=== PATIENT | female | born 1940 | race Asian ===

== ENCOUNTER 2022-05-14 15:30 | Inpatient (IN) ==
[2022-05-14] MEDS ORDERED: GLUCAGON 1 MG VIAL IM PRN (15:46)
[2022-05-14] MEDS ORDERED: DEXTROSE 50% 25 GM/50 ML VIAL IV PRN (15:46)
[2022-05-14] MEDS ORDERED: ONDANSETRON 4 MG/2 ML VIAL IV PRN (15:46)
[2022-05-14] MEDS ORDERED: ACETAMINOPHEN 325 MG TABLET PO PRN (15:46)
[2022-05-14 18:38] LABS: Basophils % 0.1 % (0.0-0.8); Eosinophils # 0.1 10*3/uL (0.0-0.87); Eosinophils % 0.7 % (0.00-10.9); Hematocrit 28.6 VOL% (35.7-47.0); Hemoglobin 8.7 GM/DL (12.0-16.0); Immature Granulocytes % 0.5 %; Immature Granulocytes Absolute 0.04 #; Lymphocytes # 1.1 10*3/uL (1.4-4.0); Lymphocytes % 12.5 % (21.3-54.2); Mean Corpuscular HGB Conc 30.4 GM/DL (32-36); Mean Corpuscular Volume 78.6 FL (87-102); Mean Platelet Volume 11.7 FL (9.6-12.0); Monocytes # 0.4 10*3/uL (0.11-0.8); Monocytes % 4.6 % (1.7-12.7); Neutrophils % 81.6 % (38.7-73.9); Platelet Count 242 T/CUMM (130-400); Red Blood Count 3.64 MC/CUMM (3.8-5.5); Red Cell Distribution Width 19.3 % (9.3-17.3); White Blood Count 8.71 T/CUMM (4-12)
[2022-05-14 19:02] LABS: Alanine Aminotransferase 21 U/L (13-56); Albumin 2.9 G/DL (3.4-5.0); Alkaline Phosphatase 58 U/L (45-117); Aspartate Amino Transferase 20 U/L (0-37); Bilirubin,Total < 0.39 MG/DL (0.20-1.00); Blood Urea Nitrogen 71 MG/DL (7-18); Calcium 9.5 MG/DL (8.5-10.1); Carbon Dioxide 21 MMOL/L (21-32); Chloride 104 MMOL/L (98-107); Glucose 223 MG/DL (74-106); Osmolality,Calculated 291.5 MOS/KG (273-304); Potassium 5.5 MMOL/L (3.5-5.1); Sodium 132 MMOL/L (136-145); Total Protein 7.4 G/DL (6.4-8.2)
[2022-05-14] MEDS: INSULIN LISPRO 100 UNIT/ML SUBCUT SCH (19:03)
[2022-05-14] MEDS ORDERED: cloNIDine 0.1 MG TABLET PO PRN (20:11)
[2022-05-14] MEDS ORDERED: ONDANSETRON ODT 4 MG TABLET PO PRN (20:11)
[2022-05-14] MEDS ORDERED: amLODIPine 5 MG TABLET PO ONE (20:14)
[2022-05-14 20:17] LABS: % Iron Saturation 5.8 % (18-50)
[2022-05-14] MEDS: HYDROmorphone 1 MG/1 ML SYRINGE IV PRN ×2 (20:30→23:31)
[2022-05-14] MEDS: SODIUM CHLORIDE 0.9% 1,000 ML IV SCH (20:30)
[2022-05-14] MEDS: DOCUSATE SODIUM 100 MG CAPSULE PO SCH (20:30)
[2022-05-14] MEDS: SERTRALINE 50 MG TABLET PO SCH (20:30)
[2022-05-14 22:49] LABS: Hyaline Casts,Urine 1 /LPF (0-3); Mucus,Urine Occasional /LPF (Occasional); RBC,Urine 2 /HPF (0-4); Squamous Epithelial Cell,Urine Occasional /HPF (0-10); Urine Appearance Clear (Clear); Urine Color Yellow (Yellow)
[2022-05-14 22:50] LABS: Bilirubin,Urine Negative (Negative); Blood, Urine Trace mg/dL (Negative); Glucose,Urine (UA) 100 mg/dL (Negative); Ketones,Urine Negative (Negative); Nitrite,Urine Negative (Negative); Protein,Urine >=300 mg/dL (Negative); Urine Specific Gravity 1.015 (1.001-1.035); Urine Urobilinogen 0.2 eU/dL (<2.0); Urine pH 5.5 (4.5-8.0)
[2022-05-15 01:14] LABS: Mucus,Urine Occasional /LPF (Occasional); RBC,Urine <1 /HPF (0-4)
[2022-05-15 01:15] LABS: Bilirubin,Urine Negative (Negative); Glucose,Urine (UA) 100 mg/dL (Negative); Ketones,Urine Negative (Negative); Nitrite,Urine Negative (Negative); Protein,Urine >=300 mg/dL (Negative); Urine Appearance Clear (Clear); Urine Color Yellow (Yellow); Urine Specific Gravity 1.015 (1.001-1.035)
[2022-05-15 01:16] LABS: Blood, Urine Negative (Negative); Urine Urobilinogen 0.2 eU/dL (<2.0)
[2022-05-15 05:26] LABS: Calcium 8.8 MG/DL (8.5-10.1); Osmolality,Calculated 289.4 MOS/KG (273-304); Potassium 5.8 MMOL/L (3.5-5.1)
[2022-05-15] MEDS: LEVOTHYROXINE 25 MCG TABLET PO SCH (05:32)
[2022-05-15] MEDS: HYDROmorphone 1 MG/1 ML SYRINGE IV PRN ×3 (05:33→21:20)
[2022-05-15 06:43] LABS: Basophils % 0.1 % (0.0-0.8); Hematocrit 22.5 VOL% (35.7-47.0); Hemoglobin 6.8 GM/DL (12.0-16.0); Immature Granulocytes % 0.4 %; Immature Granulocytes Absolute 0.04 #; Lymphocytes # 0.8 10*3/uL (1.4-4.0); Lymphocytes % 8.3 % (21.3-54.2); Mean Corpuscular HGB Conc 30.2 GM/DL (32-36); Mean Corpuscular Volume 79.2 FL (87-102); Mean Platelet Volume 11.4 FL (9.6-12.0); Monocytes # 0.4 10*3/uL (0.11-0.8); Monocytes % 4.2 % (1.7-12.7); Platelet Count 313 T/CUMM (130-400); Red Blood Count 2.84 MC/CUMM (3.8-5.5); White Blood Count 9.19 T/CUMM (4-12)
[2022-05-15] MEDS ORDERED: SODIUM CHLORIDE 0.9% 1,000 ML IV PRN (07:56)
[2022-05-15] MEDS: PANTOPRAZOLE 40 MG TABLET PO SCH (08:39)
[2022-05-15] MEDS: amLODIPine 5 MG TABLET PO SCH (08:39)
[2022-05-15] MEDS: FOLIC ACID 1 MG TABLET PO SCH (08:39)
[2022-05-15] MEDS: DOCUSATE SODIUM 100 MG CAPSULE PO SCH ×2 (08:39→20:13)
[2022-05-15] MEDS: FLUCONAZOLE 100 MG TABLET PO SCH (08:39)
[2022-05-15] MEDS: INSULIN LISPRO 100 UNIT/ML SUBCUT SCH ×2 (08:40→17:25)
[2022-05-15] MEDS ORDERED: FUROSEMIDE 20 MG/2 ML VIAL IV PRN (09:00)
[2022-05-15] MEDS: SODIUM CHLORIDE 0.9% 1,000 ML IV SCH (18:02)
[2022-05-15 19:00] LABS: Basophils % 0.2 % (0.0-0.8); Eosinophils # 0.1 10*3/uL (0.0-0.87); Eosinophils % 0.7 % (0.00-10.9); Hematocrit 31.6 VOL% (35.7-47.0); Hemoglobin 9.7 GM/DL (12.0-16.0); Immature Granulocytes % 0.5 %; Immature Granulocytes Absolute 0.04 #; Lymphocytes # 1.2 10*3/uL (1.4-4.0); Lymphocytes % 13.8 % (21.3-54.2); Mean Corpuscular HGB Conc 30.7 GM/DL (32-36); Mean Platelet Volume 11.2 FL (9.6-12.0); Monocytes # 0.5 10*3/uL (0.11-0.8); Monocytes % 5.9 % (1.7-12.7); Neutrophils % 78.9 % (38.7-73.9); Platelet Count 316 T/CUMM (130-400); Red Cell Distribution Width 18.4 % (9.3-17.3); White Blood Count 8.61 T/CUMM (4-12)
[2022-05-15 19:07] LABS: Calcium 9.1 MG/DL (8.5-10.1); Osmolality,Calculated 285.7 MOS/KG (273-304); Potassium 5.3 MMOL/L (3.5-5.1)
[2022-05-15] MEDS: SERTRALINE 50 MG TABLET PO SCH (20:13)
[2022-05-15] MEDS: hydrALAZINE 20 MG/1 ML VIAL IV PRN (20:21)
[2022-05-15] MEDS ORDERED: FUROSEMIDE 20 MG/2 ML VIAL IV ONE (21:30)
[2022-05-16] MEDS: hydrALAZINE 20 MG/1 ML VIAL IV PRN (04:06)
[2022-05-16] MEDS: HYDROmorphone 1 MG/1 ML SYRINGE IV PRN ×2 (04:28→17:55)
[2022-05-16 05:08] LABS: Basophils % 0.2 % (0.0-0.8); Eosinophils # 0.1 10*3/uL (0.0-0.87); Eosinophils % 0.7 % (0.00-10.9); Hematocrit 30.3 VOL% (35.7-47.0); Hemoglobin 9.5 GM/DL (12.0-16.0); Immature Granulocytes % 0.6 %; Immature Granulocytes Absolute 0.07 #; Lymphocytes # 1.6 10*3/uL (1.4-4.0); Lymphocytes % 13.9 % (21.3-54.2); Mean Corpuscular HGB Conc 31.4 GM/DL (32-36); Mean Corpuscular Volume 77.9 FL (87-102); Mean Platelet Volume 11.3 FL (9.6-12.0); Monocytes # 0.7 10*3/uL (0.11-0.8); Monocytes % 5.6 % (1.7-12.7); Platelet Count 323 T/CUMM (130-400); Red Blood Count 3.89 MC/CUMM (3.8-5.5); Red Cell Distribution Width 18.6 % (9.3-17.3); White Blood Count 11.51 T/CUMM (4-12)
[2022-05-16] MEDS ORDERED: ALPRAZolam 0.25 MG TABLET PO ONE (05:15)
[2022-05-16 05:27] LABS: Calcium 8.5 MG/DL (8.5-10.1); Potassium 5.1 MMOL/L (3.5-5.1)
[2022-05-16 05:32] LABS: Free T4 (Free Thyroxine) 1.08 NG/DL (0.76-1.46); Thyroid Stimulating Hormone 10.6 uIU/ml (0.358-3.74)
[2022-05-16] MEDS: LEVOTHYROXINE 25 MCG TABLET PO SCH (06:00)
[2022-05-16] MEDS ORDERED: LACTATED RINGERS 1,000 ML IV SCH (08:00)
[2022-05-16] MEDS ORDERED: ETOMIDATE 20 MG/10 ML VIAL IV ONE (08:16)
[2022-05-16] MEDS ORDERED: propofoL 200 MG/20 ML VIAL IV ONE (08:26)
[2022-05-16] MEDS ORDERED: LIDOCAINE 2% 5 ML VIAL ONE (08:26)
[2022-05-16] MEDS ORDERED: predniSONE 10 MG TABLET PO SCH (09:00)
[2022-05-16] MEDS ORDERED: DEXTROSE 50% 25 GM/50 ML VIAL IV PRN (09:01)
[2022-05-16] MEDS: INSULIN LISPRO 100 UNIT/ML SUBCUT SCH ×2 (10:41→16:17)
[2022-05-16] MEDS: FOLIC ACID 1 MG TABLET PO SCH (10:49)
[2022-05-16] MEDS: amLODIPine 5 MG TABLET PO SCH (10:50)
[2022-05-16] MEDS: DOCUSATE SODIUM 100 MG CAPSULE PO SCH ×2 (10:50→20:30)
[2022-05-16] MEDS: FLUCONAZOLE 100 MG TABLET PO SCH (10:50)
[2022-05-16] MEDS: PANTOPRAZOLE 40 MG TABLET PO SCH (10:50)
[2022-05-16] MEDS ORDERED: methylPREDNISolone SOD SUC 40 MG/1 ML VIAL IV ONE (11:20)
[2022-05-16] MEDS: methylPREDNISolone SOD SUC 40 MG/1 ML VIAL IV SCH (13:35)
[2022-05-16] MEDS ORDERED: hydrALAZINE 25 MG TABLET PO PRN ×2 (15:59→16:02)
[2022-05-16] MEDS: MIRTAZAPINE 15 MG TABLET PO SCH (20:30)
[2022-05-16] MEDS: SERTRALINE 50 MG TABLET PO SCH (20:30)
[2022-05-16] MEDS ORDERED: INSULIN GLARGINE 100 UNIT/ML SUBCUT SCH (21:00)
[2022-05-17 04:56] LABS: Hematocrit 28.2 VOL% (35.7-47.0); Hemoglobin 8.8 GM/DL (12.0-16.0); Immature Granulocytes % 0.5 %; Immature Granulocytes Absolute 0.03 #; Lymphocytes # 0.5 10*3/uL (1.4-4.0); Mean Corpuscular HGB Conc 31.2 GM/DL (32-36); Mean Corpuscular Volume 78.8 FL (87-102); Monocytes # 0.4 10*3/uL (0.11-0.8); Neutrophils % 84.5 % (38.7-73.9); Platelet Count 227 T/CUMM (130-400); Red Blood Count 3.58 MC/CUMM (3.8-5.5); Red Cell Distribution Width 18.6 % (9.3-17.3); White Blood Count 6.13 T/CUMM (4-12)
[2022-05-17 05:06] LABS: Calcium 8.4 MG/DL (8.5-10.1); Osmolality,Calculated 294.1 MOS/KG (273-304); Potassium 5.4 MMOL/L (3.5-5.1)
[2022-05-17 05:24] LABS: Hypochromia 1+; Microcytosis 1+
[2022-05-17 05:25] LABS: Ovalocytes Slight
[2022-05-17] MEDS: LEVOTHYROXINE 25 MCG TABLET PO SCH (05:35)
[2022-05-17] MEDS: HYDROmorphone 1 MG/1 ML SYRINGE IV PRN (09:28)
[2022-05-17] MEDS: PANTOPRAZOLE 40 MG TABLET PO SCH (09:28)
[2022-05-17] MEDS: DOCUSATE SODIUM 100 MG CAPSULE PO SCH ×2 (09:28→21:05)
[2022-05-17] MEDS: FLUCONAZOLE 100 MG TABLET PO SCH (09:28)
[2022-05-17] MEDS: amLODIPine 5 MG TABLET PO SCH (09:28)
[2022-05-17] MEDS: methylPREDNISolone SOD SUC 40 MG/1 ML VIAL IV SCH (09:28)
[2022-05-17] MEDS: FOLIC ACID 1 MG TABLET PO SCH (09:28)
[2022-05-17] MEDS: INSULIN LISPRO 100 UNIT/ML SUBCUT SCH ×2 (09:29→17:29)
[2022-05-17] MEDS: SODIUM BICARB INJ 50 MEQ in SODIUM CHLORIDE 0.45% 1,000 ML IV SCH ×2 (13:00→23:00)
[2022-05-17] MEDS: SODIUM BICARBONATE 650 MG TABLET PO SCH (21:05)
[2022-05-17] MEDS: SERTRALINE 50 MG TABLET PO SCH (21:05)
[2022-05-17] MEDS: INSULIN GLARGINE 100 UNIT/ML SUBCUT SCH (21:05)
[2022-05-17] MEDS: MIRTAZAPINE 15 MG TABLET PO SCH (21:05)
[2022-05-18 05:12] LABS: Basophils % 0.1 % (0.0-0.8); Eosinophils # 0.1 10*3/uL (0.0-0.87); Eosinophils % 1.7 % (0.00-10.9); Hematocrit 26.9 VOL% (35.7-47.0); Hemoglobin 8.5 GM/DL (12.0-16.0); Immature Granulocytes % 0.4 %; Immature Granulocytes Absolute 0.03 #; Lymphocytes # 1.2 10*3/uL (1.4-4.0); Lymphocytes % 15.1 % (21.3-54.2); Mean Corpuscular HGB Conc 31.6 GM/DL (32-36); Mean Corpuscular Volume 77.5 FL (87-102); Mean Platelet Volume 11.8 FL (9.6-12.0); Monocytes # 0.6 10*3/uL (0.11-0.8); Monocytes % 7.1 % (1.7-12.7); Neutrophils % 75.6 % (38.7-73.9); Platelet Count 304 T/CUMM (130-400); Red Blood Count 3.47 MC/CUMM (3.8-5.5); Red Cell Distribution Width 18.3 % (9.3-17.3); White Blood Count 8.14 T/CUMM (4-12)
[2022-05-18] MEDS: LEVOTHYROXINE 25 MCG TABLET PO SCH (06:05)
[2022-05-18 06:35] LABS: Calcium 8.3 MG/DL (8.5-10.1); Osmolality,Calculated 287.4 MOS/KG (273-304); Potassium 4.7 MMOL/L (3.5-5.1)
[2022-05-18] MEDS: FOLIC ACID 1 MG TABLET PO SCH (09:20)
[2022-05-18] MEDS: amLODIPine 5 MG TABLET PO SCH (09:20)
[2022-05-18] MEDS: DOCUSATE SODIUM 100 MG CAPSULE PO SCH ×2 (09:20→20:05)
[2022-05-18] MEDS: FLUCONAZOLE 100 MG TABLET PO SCH (09:21)
[2022-05-18] MEDS: SODIUM BICARBONATE 650 MG TABLET PO SCH ×2 (09:21→20:05)
[2022-05-18] MEDS: methylPREDNISolone SOD SUC 40 MG/1 ML VIAL IV SCH (09:22)
[2022-05-18] MEDS: PANTOPRAZOLE 40 MG TABLET PO SCH (09:22)
[2022-05-18] MEDS: INSULIN LISPRO 100 UNIT/ML SUBCUT SCH ×2 (09:25→17:13)
[2022-05-18] MEDS ORDERED: LINACLOTIDE 145 MCG CAPSULE PO ONE (12:58)
[2022-05-18] MEDS ORDERED: POLYETHYLENE GLYCOL POWDER 17 GM PACK PO ONE (13:24)
[2022-05-18] MEDS: SODIUM BICARB INJ 50 MEQ in SODIUM CHLORIDE 0.45% 1,000 ML IV SCH (14:14)
[2022-05-18 19:41] LABS: Calcium 8.6 MG/DL (8.5-10.1); Osmolality,Calculated 290.9 MOS/KG (273-304); Potassium 5.4 MMOL/L (3.5-5.1)
[2022-05-18] MEDS: INSULIN GLARGINE 100 UNIT/ML SUBCUT SCH (20:05)
[2022-05-18] MEDS: SERTRALINE 50 MG TABLET PO SCH (20:05)
[2022-05-18] MEDS: MIRTAZAPINE 15 MG TABLET PO SCH (20:05)
[2022-05-19 05:15] LABS: Basophils % 0.1 % (0.0-0.8); Eosinophils # 0.1 10*3/uL (0.0-0.87); Eosinophils % 1.4 % (0.00-10.9); Hematocrit 33.3 VOL% (35.7-47.0); Hemoglobin 10.6 GM/DL (12.0-16.0); Immature Granulocytes % 0.3 %; Immature Granulocytes Absolute 0.03 #; Lymphocytes # 1.7 10*3/uL (1.4-4.0); Lymphocytes % 18.7 % (21.3-54.2); Mean Corpuscular HGB Conc 31.8 GM/DL (32-36); Mean Corpuscular Volume 76.7 FL (87-102); Mean Platelet Volume 11.3 FL (9.6-12.0); Monocytes # 0.7 10*3/uL (0.11-0.8); Neutrophils % 71.5 % (38.7-73.9); Platelet Count 393 T/CUMM (130-400); Red Blood Count 4.34 MC/CUMM (3.8-5.5); Red Cell Distribution Width 18.3 % (9.3-17.3); White Blood Count 8.84 T/CUMM (4-12)
[2022-05-19 05:39] LABS: Calcium 8.3 MG/DL (8.5-10.1); Potassium 4.9 MMOL/L (3.5-5.1)
[2022-05-19] MEDS: LEVOTHYROXINE 25 MCG TABLET PO SCH (06:10)
[2022-05-19 08:14] LABS: Hypochromia Slight; Lymphocytes 23 % (20-55); Microcytosis Slight; Platelet Estimate Adequate; Total Cells Counted 100
[2022-05-19] MEDS: INSULIN LISPRO 100 UNIT/ML SUBCUT SCH (08:40)
[2022-05-19] MEDS: DOCUSATE SODIUM 100 MG CAPSULE PO SCH (08:55)
[2022-05-19] MEDS: FLUCONAZOLE 100 MG TABLET PO SCH (08:55)
[2022-05-19] MEDS: FOLIC ACID 1 MG TABLET PO SCH (08:55)
[2022-05-19] MEDS: amLODIPine 5 MG TABLET PO SCH (08:55)
[2022-05-19] MEDS: SODIUM BICARBONATE 650 MG TABLET PO SCH (08:55)
[2022-05-19] MEDS: methylPREDNISolone SOD SUC 40 MG/1 ML VIAL IV SCH (08:56)
[2022-05-19] MEDS: PANTOPRAZOLE 40 MG TABLET PO SCH (08:56)
[2022-05-19] MEDS ORDERED: POLYETHYLENE GLYCOL POWDER 17 GM PACK PO ONE (10:22)
[2022-05-19] MEDS: SODIUM BICARB INJ 50 MEQ in SODIUM CHLORIDE 0.45% 1,000 ML IV SCH (11:06)
[2022-05-19 11:55] VITALS: BP 180/46
[2022-05-19] MEDS ORDERED: BISACODYL 10 MG SUPP RECTAL ONE (13:00)
== END 2022-05-19 15:29 | disposition home health service (06) | DRG 199 ==
LOC: N.2E → OBSVTOIN 16:11
PROVIDERS: ADMIT Family Medicine; ATTEND Family Medicine